=== PATIENT | male | born 1960 | race Caucasian/White ===

== ENCOUNTER 2017-03-11 23:01 | Emergency (ER) | payer BC ==
[~2017-03-11] VITALS: Ht 182.9 cm; Wt 136.7 kg
[2017-03-12 03:00] LABS: HEMATOCRIT 36.1 % (38.0-50.0); MCH 34.9 PG (29.0-34.0); MCHC 34.9 G/DL (30.0-36.0); MEAN PLAT.VOLUME 9.3 uM^3 (9.0-12.4); PLATELET COUNT 213 K/uL (156-360); RBC DIS.WIDTH-CV 12.5 % (11.8-14.6); RBC DIS.WIDTH-SD 45.9 % (39-53); RED BLOOD COUNT 3.61 M/uL (4.00-5.50); WHITE BLOOD COUNT 5.9 K/uL (4.1-10.2)
[2017-03-12 03:05] LABS: INTER. NORMALIZED RATIO 4.1; PROTHROMBIN TIME 47.9 SEC (10.2-12.9)
[2017-03-12 03:10] LABS: CHLORIDE 99 mEq/L (99-109); POTASSIUM 3.8 mEq/L (3.7-5.4); SODIUM 135 mEq/L (136-147)
[2017-03-12 03:11] LABS: GLUCOSE 106 mg/dL (70-99)
[2017-03-12 03:13] LABS: ANION GAP 9 MEQ/L (2-14)
[2017-03-12 03:16] LABS: UREA NITROGEN (BUN) 17 mg/dL (9-23)
[2017-03-12 03:17] LABS: GFR ESTIMATE (CALCULATED) > 59 mL/min/
[2017-03-12 04:25] VITALS: BP 122/89
[2017-03-12] MEDS ORDERED: WARFARIN SODIUM5 MG PO (04:26)
== END 2017-03-12 04:26 | disposition home or self-care (01) ==
LOC: EME 23:01
PROVIDERS: Physician Assistant
DX: M79.89 Other specified soft tissue disorders (principal); Z98.890 Other specified postprocedural states; Z96.652 Presence of left artificial knee joint; Z79.01 Long term (current) use of anticoagulants
CPT/HCPCS: 73564; 80048; 85027; 85610; 85730; 93971; 99281; 99284